=== PATIENT | female | born 1965 | race Two or more races ===

== ENCOUNTER 2023-06-26 16:05 | Outpatient (CLI) | payer OTHER | END 2023-06-26 16:07 | disposition home or self-care (01) | LOC: SONOGRAMA 16:05 | PROVIDERS: ATTEND Pathology Anatomic Pathology & Clinical Pathology | DX: D34 Benign neoplasm of thyroid gland (principal); E07.89 Other specified disorders of thyroid; R94.6 Abnormal results of thyroid function studies ==